=== PATIENT | male | born 1940 | race Two or more races ===

== ENCOUNTER 2022-02-06 13:13 | Outpatient (CLI) | payer OTHER | END 2022-02-06 13:20 | disposition home or self-care (01) | LOC: TOM 13:13 | PROVIDERS: ATTEND Internal Medicine | DX: S09.90XA Unspecified injury of head, initial encounter (principal) ==

== ENCOUNTER 2024-04-14 10:53 | Outpatient (CLI) | payer OTHER | END 2024-04-14 10:56 | disposition home or self-care (01) | LOC: NUCLEAR 10:53 | PROVIDERS: ATTEND Internal Medicine | DX: I50.9 Heart failure, unspecified (principal); I10 Essential (primary) hypertension ==